=== PATIENT | male | born 1965 | race Caucasian/White ===

== ENCOUNTER 2025-03-17 19:02 | Emergency (ER) | payer MEDICARE, MEDICAID ==
[2025-03-17] MEDS: Acetaminophen 500 MG Tab PO ONE (22:21)
[2025-03-17] MEDS: Gabapentin 100 MG Cap PO ONE (22:37)
[2025-03-17] MEDS: QUEtiapine 25 MG Tab PO ONE (22:38)
[2025-03-17] MEDS: Divalproex Sodium Delayed-Release 250 MG Tab.CR PO ONE (22:40)
[2025-03-18] MEDS: Ibuprofen 400 MG Tab PO ONE (08:11)
[2025-03-18] MEDS: Acetaminophen 500 MG Tab PO ONE (08:11)
== END 2025-03-18 09:03 | disposition home or self-care (01) ==
LOC: JP.ED 19:02
DX: S82.144A Nondisplaced bicondylar fracture of right tibia, initial encounter for closed fracture (principal); F17.200 Nicotine dependence, unspecified, uncomplicated; Z79.899 Other long term (current) drug therapy; X58.XXXA Exposure to other specified factors, initial encounter
CPT/HCPCS: 73564; 99283; A9270